=== PATIENT | male | born 1955 | race Caucasian/White ===

== ENCOUNTER 2016-05-15 06:11 | Observation (INO) | payer BC, MEDICARE ==
[2016-05-10 12:58] LABS: HEMATOCRIT 50.4 % (40.0-51.0); HEMOGLOBIN 17.2 g/dL (13.6-17.8)
[2016-05-10 13:12] LABS: A/G RATIO 1.4 (0.7-1.9); ALKALINE PHOSPHATASE 114 U/L (45-117); BUN (BLOOD UREA NITROGEN) 22 MG/DL (6-23); CALCIUM, SERUM 9.6 MG/DL (8.5-10.4); CHLORIDE, SERUM 108 MMOL/L (96-112); CO2 (CARBON DIOXIDE) 23 MMOL/L (24-34); CREATININE 0.96 MG/DL (0.70-1.30); GFR AFRICAN AMERICAN 98 ML/MIN (>=60); GFR NON AFRICAN AMERICAN 84 ML/MIN (>=60); GLOBULIN 2.8 G/DL (2.5-4.1); GLUCOSE, SERUM 118 MG/DL (60-99); POTASSIUM, SERUM 3.7 MMOL/L (3.5-5.3); SGOT(AST) 30 U/L (5-40); SGPT(ALT) 81 U/L (5-65); SODIUM, SERUM 141 MMOL/L (135-148); TOTAL BILIRUBIN 1.1 MG/DL (0-1.2); TOTAL PROTEIN 6.8 G/DL (6.0-8.5)
--- NOTE | ~2016-05-15 | OP ---
Record Of Operation [facility] [address] [place]. [address] NAME: CHINO JOHN : 51 STATUS : DIS Bridgette PAT#: [id number] AGE: 60 ADM/REG DATE : 05/15/16 MR#: [id number] REPORT SERV DATE: 05/16/16 DICTATED BY: GORGE WALLER DATE: 05/16/16 REPORT STATUS : Draft TRANSCRIBED BY: MODL DATE: 05/16/16 DATE OF PROCEDURE: 05/15/2016 PREOPERATIVE DIAGNOSES: 1. Primary hyperparathyroidism. 2. 1 cm right thyroid nodule. POSTOPERATIVE DIAGNOSES: 1. Primary hyperparathyroidism. 2. 1 cm medullary thyroid carcinoma of the right thyroid lobe. PROCEDURE: 1. Bilateral cervical exploration and resection of left inferior parathyroid. 2. Total thyroidectomy. SURGEON: Gorge Waller M.D. RESIDENT SURGEON: Serafin Gutierrez M.D. ANESTHESIA: General. ESTIMATED BLOOD LOSS: 30 mL. BRIEF HISTORY AND DESCRIPTION OF FINDINGS: The patient had been diagnosed with clear biochemical primary hyperparathyroidism with neuropsychiatric symptoms and severe osteopenia. Preoperative localization studies had been unrevealing for a likely parathyroid adenoma, but a 10 mm right thyroid nodule had been identified intraoperatively, normal parathyroids were identified in the bilateral superior and right inferior locations, what appeared to be a slightly enlarged maroon, turgid left inferior gland was excised. The pre- incision intraoperative parathyroid hormone level (IOPTH) was 74.8 pg/mL. The 10 and 15 and 40-minute post excision values however were 297, 219, and 245 pg/mL respectively suggestive of significant manipulation of an additional abnormal gland. Right hemithyroidectomy was performed and a subsequent 15-minute post excision value of 85 was achieved of uncertain value. Frozen section was consistent with medullary thyroid carcinoma and therefore contralateral resection was performed as well. There was no evidence of lymphadenopathy. Serum calcitonin level was drawn. DETAILS OF PROCEDURE: The patient arrived in the operating suite and was placed on the table in supine position. General anesthesia was obtained via an endotracheal tube. The patient was appropriately positioned. The neck and upper chest were prepped and draped in a sterile manner. A cervical collar incision was performed. Subplatysmal flaps were elevated with blunt dissection and cautery. Strap muscles were split in the midline. A plane of dissection created between the right thyroid lobe and overlying strap muscles. Middle thyroid vein branches were divided with LigaSure and the right lobe was rotated anteromedially. The inferior thyroid artery was identified and just cephalad to its course quite posteriorly and normal parathyroid was seen. Near the inferior pole of the thyroid Record Of Operation [facility] [address] [place]. [id number] NAME: CHINO JOHN : 51 STATUS : DIS Bridgette PAT#: [id number] AGE: 60 ADM/REG DATE : 05/15/16 MR#: [id number] REPORT SERV DATE: 05/16/16 DICTATED BY: GORGE WALLER DATE: 05/16/16 REPORT STATUS : Draft TRANSCRIBED BY: FCO DATE: 05/16/16 laterally, again a normal parathyroid was identified just anteromedial to the course of the recurrent nerve. There was no palpable nodule within the thyroid. Attention was then turned to the left. On the left, mobilization occurred very similarly to the right. Superior gland tracking from the branch of the inferior thyroid artery quite posteriorly into the tracheoesophageal groove was delivered and that parathyroid appeared normal as well. Along the lateral aspect of the inferior pole, what appeared to be a slightly turgid and enlarged firm parathyroid was identified. It was mobilized, blood supply divided between clips. The gland was bisected and appeared to be somewhat firm and turgid consistent with a small adenoma. This was sent for permanent histology. Post-excision, all PTH values were surprisingly returned as above. Attention was turned to the right lobe of the thyroid with the thought that possible manipulation of the intrathyroidal parathyroid that resulted in the above findings. Beginning at the superior pole, vessels were isolated and divided between clips and with the LigaSure avoiding the external branch of superior laryngeal nerve. Inferior thyroid veins anteriorly were divided with the LigaSure. The vessels along the posterior and lateral aspect of the thyroid were divided between silk ties and between clips when close to the nerve. Once the thyroid was rotated anteromedial to the course of the nerve, it was divided from the pretracheal fascia with the LigaSure and the isthmus transected with the same. Specimen was sent for frozen section, and 15-minute post excision, all PTH was returned, which dropped significantly into the 80s. Frozen section, however, suggested medullary thyroid carcinoma, although the findings clinically suggested a possible intrathyroidal parathyroid. Attention was then turned to the left. The left lobe was mobilized similarly to the right. Again, the recurrent nerve was clearly identified and dissection maintained anteromedial to its course dividing vessels between clips and silk ties. Inferior thyroid veins were divided with the LigaSure. The superior parathyroid was protected. The left lobe was rotated anteromedial to the course of the nerve and divided from the pretracheal fascia with the LigaSure. One small nubbin near the ligament of Morse and the anterior branch of the recurrent nerve was protected to protect the nerve dividing this between silk tie and a clip, leaving a tiny amount of thyroid. The specimen was then sent for permanent histology. The wound was irrigated. Hemostasis was good. Surgicel was placed in tracheoesophageal groove bilaterally. No node dissection was performed given the uncertainty of the diagnosis given the clinical and biochemical findings. Strap muscles were approximated with 3-0 Vicryl, platysma with 4-0 Vicryl, skin closure with subcuticular 5-0 Monocryl. Sterile dressing applied. The patient awakened, extubated, and taken to PACU. /FCO Gorge Waller M.D. / [id number] CC: Karla Barros M.D.
[~2016-05-15 06:11] MED LIST: ASA5GR PO; ASAB PO; FISH OIL1200 MG PO; FISH-EPA1000 MG PO; LOP25 PO; NEXIUM40 PO; NITROSTAT0.4 MG SL; PLAVIX PO; PREV15 PO; PRIN20 PO; REM15 PO; TOPXL25 PO; ZOCOR20 PO; ZOCOR40 PO
[2016-05-15 10:09] LABS: PTH (INTRAOPERATIVE) 74.8 PG/ML (10.0-65.0)
[2016-05-15 11:29] LABS: PTH (INTRAOPERATIVE) 297.5 PG/ML (10.0-65.0); PTH TAT 0 Hrs 14 Mins
[2016-05-15 11:31] LABS: PTH TAT 0 Hrs 16 Mins
[2016-05-15 12:02] LABS: PTH (INTRAOPERATIVE) 245.3 PG/ML (10.0-65.0); PTH TAT 0 Hrs 18 Mins
[2016-05-15 13:23] LABS: PTH (INTRAOPERATIVE) 87.7 PG/ML (10.0-65.0); PTH TAT 0 Hrs 21 Mins
[2016-05-16] MEDS ORDERED: PCET PO (08:51)
[2016-05-16] MEDS ORDERED: SYN112 PO (08:52)
== END 2016-05-16 09:45 | disposition home or self-care (01) ==
LOC: SDC 06:11 → 5SO 18:58
PROVIDERS: Specialist
PROC: 0GTK0ZZ Resection of Thyroid Gland, Open Approach (ICD-10-PCS; principal; 2016-05-15 08:00)
PROC: 0GBP0ZZ Excision of Left Inferior Parathyroid Gland, Open Approach (ICD-10-PCS; 2016-05-15 08:00)
DX: C73 Malignant neoplasm of thyroid gland (principal); E21.0 Primary hyperparathyroidism; I25.10 Atherosclerotic heart disease of native coronary artery without angina pectoris; E78.2 Mixed hyperlipidemia; K21.9 Gastro-esophageal reflux disease without esophagitis; E11.9 Type 2 diabetes mellitus without complications; E66.9 Obesity, unspecified; E78.00 Pure hypercholesterolemia, unspecified; I10 Essential (primary) hypertension; Z82.49 Family history of ischemic heart disease and other diseases of the circulatory system; Z79.82 Long term (current) use of aspirin; Z79.899 Other long term (current) drug therapy; Z95.5 Presence of coronary angioplasty implant and graft; Z68.30 Body mass index [BMI] 30.0-30.9, adult; Z98.890 Other specified postprocedural states; Z85.46 Personal history of malignant neoplasm of prostate; Z95.1 Presence of aortocoronary bypass graft
CPT/HCPCS: 36415; 80053; 82330; 82962; 83970; 84145; 84153; 85014; 85018; 88305; 88307; 88331; 88332; 88341; 88342; 93005; 96372; A9270-GY; G0378; J0690; J2250; J2370; J2405; J2710; J3010